=== PATIENT | female | born 1955 | race Hispanic/Latino ===

== ENCOUNTER → 2019-11-17 | Day surgery (SDC) | payer OTHER ==
[~2019-11-17] MED LIST: AMLODIPINE BESYL5 MG PO; CEFTRIAXONE SOD 1 GM/NS 50 ML 50 ML IV ONE; DIOVAN80 MG PO; IOPAMIDOL 300MG/ML 50ML INFUS..BTL IV ONE; LIDOCAINE HCL 2% LOCAL INJ 5 ML SDV VIAL INJ ONE; PROPOFOL IV EMULSION 10 MG/ML 20 ML VIAL ONE; SEVOFLURANE INHAL SOLN 250 ML PEN BTL ONE
--- OUTSIDE RECORDS SUMMARY | 2019-11-17 06:01 | XMS REPORT ---
Author Author Admin, [employer] Organization Unknown Address Unknown Phone Unavailable PROBLEMS Condition Status Date Provider Notes Urinalysis, abnormal active Lety Romina Increased frequency of urination active Lety Romina BMI 27.0-27.9 completed - Lety Romina Muscle spasm, trapezius completed - Lety Romina WELL EXAM, WOMAN completed - Lety Romina Bacterial vaginosis completed - Lety Romina UTI completed - Lety Romina Vaginal discharge completed - Lety Romina Dysuria completed - Lety Romina GOITER completed - Lety Romina on thyroxine 25 micrograms TSH 2 never scan, never visit to endocrine but requesting to go OVERWEIGHT completed - Lety Romina SIALOLITHIASIS completed - Lety Romina left submandibular gland BREAST PAIN, LEFT completed - Lety Romina FATIGUE completed - Lety Romina HEMATURIA completed - Lety Romina 10 rbc hpf on dip urine Dec 12 2013 will rx as infection but she knows to return for repeat urinalysis and may need cystoccopy. CEREBRAL ANEURYSM, RUPTURED completed - Lety Romina 2007 had ruptured aneurism treated medically was hypertensive a the time 1 month in [place] HYPOTHYROIDISM completed - Lety Romina five years of treatment, [facility] sent her to endocrine but she was not able to go for reasons of insurance expiration. Claims small dose all of this time. Will check TSH today. HYPERTENSION, BENIGN active Kya Quezada ESOPHAGEAL REFLUX completed - Lety Romina CYSTITIS, ACUTE, RECURRENT completed - Lety Romina 10 rbc/ hpf but biannual cystitis rx so will treat as infection, then recheck. ENCOUNTERS Date Type Provider Location Encounter Diagnosis - Ambulatory Encounter Lety Romina Davidson Romina [facility] UNK - [facility] CYSTITIS, ACUTE, RECURRENTESOPHAGEAL REFLUXHYPOTHYROIDISMCEREBRAL ANEURYSM, RUPTUREDHEMATURIAFATIGUEBREAST PAIN, LEFTSIALOLITHIASISOVERWEIGHTGOITERDysuriaVaginal dischargeUTIBacterial vaginosisWELL EXAM, WOMANMuscle spasm, trapeziusBMI 27.0-27.9Increased frequency of urinationUrinalysis, abnormal - [facility] UNK - Ambulatory Encounter Kya Quezada [facility] UNK - Ambulatory Encounter Kya Quezada [facility] UNK - Ambulatory Encounter Kya Plata [facility] BMI 27.0-27.9 - Ambulatory Encounter Buningris Sanchez [facility] UNK - Ambulatory Encounter Bunrimalcolm Sanchez [facility] UNK - Ambulatory Encounter Bunrimalcolm Snachez [facility] UNK - Ambulatory Encounter Buningris Sanchez [facility] UNK - Ambulatory Encounter Kya Quezada Adrián Perryline Matias [facility] Muscle spasm, trapezius - Ambulatory Encounter Kya Quezada [facility] UNK - Ambulatory Encounter Tiara Arauz [facility] - [facility]ulatory Encounter Kya Quezada [facility] UNK - Ambulatory Encounter Kya Quezada [facility] UNK - Ambulatory Encounter Kya Ignacio [facility] UNK - Ambulatory Encounter Samantha Kaitlin [facility] UNK - Ambulatory Encounter Ana Lopez [facility] UNK - Ambulatory Encounter Samantha Kaitlin [facility] UNK - Ambulatory Encounter Fax Status [facility] UNK - Ambulatory Encounter Fax Status [facility] UNK - Ambulatory Encounter Fax Status [facility] UNK - Ambulatory Encounter Fax Status [facility] UNK - Ambulatory Encounter Fax Status [facility] UNK - Ambulatory Encounter Samantha Kaitlin [facility] UNK - Ambulatory Encounter Samantha Kaitlin [facility] UNK - Ambulatory Encounter Samanthacosmo Madrigal Renée Lopez [facility] WELL EXAM, WOMAN - Ambulatory Encounter Urmila Menjivar Huyjose luis [facility] UNK - Ambulatory Encounter [facility] Tiara Prosjose luis [facility] UNK - Ambulatory Encounter LSJ [facility] Tiara Huyjose luis WintersUrmila Ignacio [facility] UNK - Ambulatory Encounter Tiara Prose [facility] UNK - Ambulatory Encounter Tiara Prose [facility] UNK - Ambulatory Encounter Carlos Oreilly [facility] DysuriaVaginal dischargeUTIBacterial vaginosis - Ambulatory Encounter Kya Quezada [facility] UNK - Ambulatory Encounter Fax Status [facility] UNK - Ambulatory Encounter Fax Status [facility] - Ambulatory Encounter Fax Status [facility] - Ambulatory Encounter Fax Status [facility] - Ambulatory Encounter Fax Status [facility] - Ambulatory Encounter Fax Status [facility] - [facility] - [facility]ulatory Encounter Kya Garcia Plata [facility] OVERWEIGHTGOITER - Ambulatory Encounter Gela Mcrae [facility] UNK - Ambulatory Encounter Kya Triplett [facility] SIALOLITHIASIS - Ambulatory Encounter [facility] - [facility]ulatory Encounter [facility] - Ambulatory Encounter Kya Quezada [facility] UNK - Ambulatory Encounter Ellis Stephanie [facility] UNK - Ambulatory Encounter Alycia Bennett Referral Coordination Department UNK - Ambulatory Encounter Kya Quezada [facility] UNK - Ambulatory Encounter Kya Ignacio [facility] CYSTITIS, ACUTE, RECURRENTESOPHAGEAL REFLUXHYPERTENSION, BENIGNHYPOTHYROIDISMCEREBRAL ANEURYSM, RUPTUREDHEMATURIAFATIGUEBREAST PAIN, LEFT VITAL SIGNS Date Observation Value Provider blood pressure, diastolic, second observation 80 mm[Hg] Deborath Vincent " blood pressure, systolic, second observation 125 mm[Hg] Deborath Vincent " temperature E&M 98.0 [degF] Deborath Vincent " respiratory rate E&M 16 /min Deborath Vincent " pulse rate E&M 69 /min Deborath Vincent " oxygen saturation, oximetry 99 % Deborath Vincent " blood pressure, diastolic 90 mm[Hg] Deborath Vincent " blood pressure, systolic 146 mm[Hg] [facility] " weight E&M 141.80 lbs. [facility] " weight in kilograms E&M 64.45 kg [facility] " height E&M 62 [in_i] [facility] " height in centimeters E&M 157.48 cm [facility] " method used to obtain blood pressure automatic [facility] " Blood Pressure Position 01 sitting [facility] " blood pressure, site #1 left arm [facility] " temperature site oral [facility] oxygen saturation, oximetry 98 % Josephine Plata " method used to obtain blood pressure automatic Josephine Plata " Blood Pressure Position 01 sitting Josephine Plata " blood pressure, site #1 right arm Josephine Plata " blood pressure, diastolic 97 mm[Hg] Josephine Plata " blood pressure, systolic 152 mm[Hg] Josephine Plata " respiratory rate E&M 17 /min Josephine Plata " pulse rate E&M 41 /min Josephine Plata " temperature site oral Josephine Plata " temperature E&M 97.0 [degF] Josephine Plata " weight E&M 147.40 lbs. Josephine Plata " weight in kilograms E&M 67 kg Josephine Plata " height E&M 62 [in_i] Josephine Plata " height in centimeters E&M 157.48 cm Josephine Plata oxygen saturation, oximetry 98 % Afia Salcedo " method used to obtain blood pressure automatic Afia Salcedo " Blood Pressure Position 01 sitting Afia Salcedo " blood pressure, site #1 right arm Afia Salcedo " blood pressure, diastolic 85 mm[Hg] Afia Salcedo " blood pressure, systolic 144 mm[Hg] Afia Salcedo " respiratory rate E&M 19 /min Afia Salcedo " pulse rate E&M 70 /min Afia Salcedo " temperature site tympanic Afia Salcedo " temperature E&M 98.7 [degF] Afia Salcedo " weight E&M 148 lbs. Afia Salcedo " weight in kilograms E&M 67.27 kg Afia Salcedo " height E&M 62 [in_i] Afia Salcedo " height in centimeters E&M 157.48 cm Afia Salcedo oxygen saturation, oximetry 98 % Urmila Mateus " blood pressure, diastolic 88 mm[Hg] Urmila Ignacio " blood pressure, systolic 147 mm[Hg] Urmila Ignacio " respiratory rate E&M 16 /min Urmila Ignacio " pulse rate E&M 67 /min Urmila Ignacio " temperature E&M 98.2 [degF] Urmila Ignacio " weight E&M 147.13 lbs. Urmila Ignacio " weight in kilograms E&M 66.88 kg Urmila Ignacio " temperature site oral Urmila Mateus " method used to obtain blood pressure automatic Urmila Ignacio " Blood Pressure Position 01 sitting Urmila Mateus " blood pressure, site #1 left arm Urmila Ignacio " height E&M 62 [in_i] Urmila Ignacio " height in centimeters E&M 157.48 cm Urmila Mateus oxygen saturation, oximetry 97 % Ana Lopez " method used to obtain blood pressure automatic Ana Lopez " Blood Pressure Position 01 sitting Ana Lopez " blood pressure, site #1 left arm Ana Lopez " blood pressure, diastolic 81 mm[Hg] Ana Lopez " blood pressure, systolic 122 mm[Hg] Ana Lopez " respiratory rate E&M 20 /min Ana Lopez " pulse rate E&M 61 /min Ana Lopez " temperature site tympanic Ana Lopez " temperature E&M 97.2 [degF] Ana Lopez " weight E&M 144.25 lbs. Ana Lopez " weight in kilograms E&M 65.57 kg Ana Lopez " height E&M 62 [in_i] Ana Lopez " height in centimeters E&M 157.48 cm Ana Lopez oxygen saturation, oximetry 99 % Afia Salcedo " method used to obtain blood pressure automatic Afia Salcedo " Blood Pressure Position 01 sitting Afia Salcedo " blood pressure, site #1 right arm Afia Salcedo " blood pressure, diastolic 87 mm[Hg] Afia Salcedo " blood pressure, systolic 130 mm[Hg] Afia Salcedo " respiratory rate E&M 18 /min Afia Salcedo " pulse rate E&M 69 /min Afia Salcedo " temperature site tympanic Afia Duenasa " temperature E&M 98.9 [degF] Afia Salcedo " weight E&M 145.13 lbs. Afia Duenasa " weight in kilograms E&M 65.97 kg Afia Salcedo " height E&M 62 [in_i] Afia Salcedo " height in centimeters E&M 157.48 cm Afia Salcedo method used to obtain blood pressure automatic Radha Plata " Blood Pressure Position 01 sitting Radha Plata " blood pressure, site #1 left arm Radha Plata " blood pressure, diastolic 91 mm[Hg] Radha Plata " blood pressure, systolic 142 mm[Hg] Radha Plata " temperature site oral Radha Plata " temperature E&M 98.1 [degF] Radha Plata " respiratory rate E&M 18 /min Radha Plata " pulse rate E&M 72 /min Radha Plata " oxygen saturation, oximetry 98 % Radha Plata " weight E&M 141 lbs. Radha Plata " weight in kilograms E&M 64.09 kg Radha Plata " height E&M 62 [in_i] Radha Plata " height in centimeters E&M 157.48 cm Radha Plata oxygen saturation, oximetry 98 % Ioana Borjas " method used to obtain blood pressure automatic Ioana Borjas " Blood Pressure Position 01 sitting Ioana Borjas " blood pressure, site #1 right arm Ioana Borjas " blood pressure, diastolic 90 mm[Hg] Ioana Borjas " blood pressure, systolic 146 mm[Hg] Ioana Borjas " respiratory rate E&M 16 /min Ioana Borjas " pulse rate E&M 58 /min Ioana Borjas " temperature site oral Ioana Borjas " temperature E&M 98.2 [degF] Ioana Borjas " weight E&M 141.40 lbs. Ioana Borjas " weight in kilograms E&M 64.27 kg Ioana Borjas " height E&M 62 [in_i] Ioanamykel Borjas " height in centimeters E&M 157.48 cm Ioana Borjas temperature site oral Urmila Ignacio " method used to obtain blood pressure automatic Urmilamague Ignacio " blood pressure, site #1 right arm Urmilamague Ignacio " Blood Pressure Position 01 sitting Urmilamague Ignacio " oxygen saturation, oximetry 98 % Urmilamague Bhattrez " blood pressure, diastolic 101 mm[Hg] Urmila Ignacio " blood pressure, systolic 164 mm[Hg] Urmila Ignacio " respiratory rate E&M 17 /min Urmilamague Bhattrez " pulse rate E&M 76 /min Urmila Ignacio " temperature E&M 98.5 [degF] Urmila Ignacio " weight E&M 140 lbs. Urmila Ignacio " weight in kilograms E&M 63.64 kg Urmilamague Ignacio " height in centimeters E&M 157.48 cm Urmila Ignacio " height E&M 62 [in_i] Urmila Ignacio ALLERGIES Allergy Name Onset Date Reaction Criticality Status HEPARIN Platelet level decreases High Criticality active REASON FOR REFERRAL No Information Available RESULTS Date Observation Value Provider Reference Range Interpretation Location specific gravity, urine 1.025 Deborath Vincent " pH, urine, semiquantitative 5.0 Deborath Vincent " glucose, urine, semiquantitative negative Deborath Vincent " bilirubin, urine 1+ Deborath Vincent " ketones, urine, by test strip negative Debora Vincent " blood in urine (hemoglobin) by dipstick 2+ Deborath Vincent " protein, urine, semiquantitative (dipstick) negative Deborath Vincent " urobilinogen, urine, semiquantitative (dipstick) negative Deborath Vincent " nitrite, urine, semiquantitative negative Deborath Vincent " leukocyte esterase, urine, by dipstick trace Deborath Vincent " appearance, urine clear Deborath Vincent " urine color orange Deborath Vincent immature granulocytes, percentage of total cells, blood 0 % [facility] " basophil count, absolute 0.0 x10E3/uL [facility] 0.0-0.2 " Eosinophil Absolute Count 0.1 X10E3/UL [facility] 0.0-0.4 " monocyte count, blood, automated 0.3 X10E3/UL [facility] 0.1-0.9 " lymphocyte count, blood, automated 2.0 X10E3/UL [facility] 0.7-3.1 " Absolute Neutrophils 3.4 X10E3/UL [facility] 1.4-7.0 " basophils as percent of blood leukocytes 1 % [facility] " eosinophils as percent of blood leukocytes 2 % [facility] " monocytes as percent of blood leukocytes 6 % [facility] " lymphocytes as percent of blood leukocytes 34 % [facility] " neutrophils as percent of blood leukocytes 57 % [facility] " platelet count 213 X10E3/UL [facility] 150-379 " red blood cell distribution width 13.3 % [facility] 12.3-15.4 " mean corpuscular hemoglobin concentration, RBC 32.9 G/DL [facility] 31.5-35.7 " mean corpuscular hemoglobin, RBC 29.6 pg [facility] 26.6-33.0 " mean corpuscular volume, RBC 90 fL [facility] 79-97 " hematocrit, blood 41.4 % [facility] 34.0-46.6 " hemoglobin, blood 13.6 g/dL [facility] 11.1-15.9 " erythrocyte (RBC) count 4.60 X10E6/UL [facility] 3.77-5.28 " leukocyte count, blood 6.0 X10E3/UL [facility] 3.4-10.8 " thyroxine, serum, free 0.91 ng/dL [facility] 0.82-1.77 " thyroid stimulating hormone, serum 2.210 u[iU]/mL [facility] 0.450-4.500 specific gravity, urine 1.015 Josephine Plata " pH, urine, semiquantitative 6.5 Josephine Plata " glucose, urine, semiquantitative negative Josephine Plata " bilirubin, urine negative Josephine Plata " ketones, urine, by test strip negative Josephine Plata " blood in urine (hemoglobin) by dipstick hemolyzed trace Josephine Plata " protein, urine, semiquantitative (dipstick) negative Josephine Plata " urobilinogen, urine, semiquantitative (dipstick) 0.2 Josephine Plata " nitrite, urine, semiquantitative negative Josephine Plata " leukocyte esterase, urine, by dipstick trace Josephine Plaat " appearance, urine clear Josephine Plata " urine color yellow Josephine Plata urine culture Proteus mirabilis [facility] Abnormal specific gravity, urine 1.020 Urmila Ignacio " pH, urine, semiquantitative 6.0 Urmila Ignacio " glucose, urine, semiquantitative negative Urmila Ignacio " bilirubin, urine negative Urmila Ignacio " ketones, urine, by test strip negative Urmila Ignacio " blood in urine (hemoglobin) by dipstick 1+ Urmila Ignacio " protein, urine, semiquantitative (dipstick) trace Urmila Ignacio " urobilinogen, urine, semiquantitative (dipstick) negative Urmila Ignacio " nitrite, urine, semiquantitative negative Urmila Ignacio " leukocyte esterase, urine, by dipstick 1+ Urmila Ignacio " appearance, urine clear Urmila Ignacio " urine color yellow Urmila Ignacio thyroid stimulating hormone, serum 2.280 u[iU]/mL [facility] 0.450-4.500 " LDL cholesterol, serum 98 mg/dL [facility] 0-99 " very low density lipoproteins 24 mg/dL [facility] 5-40 " HDL cholesterol, serum 52 mg/dL [facility] >39 " triglyceride, serum, fasting 121 mg/dL [facility] 0-149 " cholesterol, serum 174 mg/dL [facility] 100-199 " alanine aminotransferase (SGPT), serum 19 1/L [facility] 0-32 " aspartate aminotransferase (SGOT), serum 19 1/L [facility] 0-40 " alkaline phosphatase, serum 53 1/L [facility] 39-117 " bilirubin, serum, total 0.4 mg/dL [facility] 0.0-1.2 " albumin/globulin ratio, serum 1.4 [facility] 1.1-2.5 " globulin, serum 2.9 [facility] 1.5-4.5 " albumin, serum 4.2 g/dL [facility] 3.5-5.5 " protein, total, serum 7.1 g/dL [facility] 6.0-8.5 " calcium, serum 9.4 mg/dL [facility] 8.7-10.2 " carbon dioxide, venous blood 28 mmol/L [facility] 18-29 " chloride, serum 102 mmol/L [facility] 97-108 " potassium, serum 3.7 mmol/L [facility] 3.5-5.2 " sodium, serum 143 mmol/L [facility] 134-144 " urea nitrogen/creatinine ratio, serum 29 [facility] 9-23 High " eGFR if 115 mL/min/((173/100).m2) [facility] >59 " Estimated Glomerular Filtration Rate (calc) 100 mL/min/((173/100).m2) [facility] >59 " creatinine, serum 0.62 mg/dL [facility] 0.57-1.00 " urea nitrogen, blood 18 mg/dL [facility] 6-24 " blood glucose, random 90 mg/dL [facility] 65-99 Neisseria gonorrhoeae DNA probe Negative [facility] Negative " chlamydia DNA probe Negative [facility] Negative " urine culture Proteus mirabilis [facility] Abnormal specific gravity, urine 1.020 Natty Vincent " pH, urine, semiquantitative 6.0 Natty Vincent " glucose, urine, semiquantitative negative Nattyrupali Vincent " bilirubin, urine negative Natty Vincent " ketones, urine, by test strip negative Natty Vincent " blood in urine (hemoglobin) by dipstick non-hemolyzed trace Natty Vincent " protein, urine, semiquantitative (dipstick) negative Natty Vincent " urobilinogen, urine, semiquantitative (dipstick) 0.2 Nattyrupali Vincent " nitrite, urine, semiquantitative negative Nattyrupali Vincent " leukocyte esterase, urine, by dipstick 3+ Natty Vincent " appearance, urine clear Natty Vincent " urine color yellow Natty Vincent hemoglobin A1C, blood, as % of total hemoglobin 5.4 % [facility] 4.8-5.6 " thyroid stimulating hormone, serum 2.260 u[iU]/mL [facility] 0.450-4.500 " LDL cholesterol, serum 89 mg/dL [facility] 0-99 " very low density lipoproteins 23 mg/dL [facility] 5-40 " HDL cholesterol, serum 56 mg/dL [facility] >39 " triglyceride, serum, fasting 115 mg/dL [facility] 0-149 " cholesterol, serum 168 mg/dL [facility] 100-199 " alanine aminotransferase (SGPT), serum 22 1/L [facility] 0-32 " aspartate aminotransferase (SGOT), serum 20 1/L [facility] 0-40 " alkaline phosphatase, serum 61 1/L [facility] 39-117 " bilirubin, serum, total 0.4 mg/dL [facility] 0.0-1.2 " albumin/globulin ratio, serum 1.6 [facility] 1.1-2.5 " globulin, serum 2.9 [facility] 1.5-4.5 " albumin, serum 4.5 g/dL [facility] 3.5-5.5 " protein, total, serum 7.4 g/dL [facility] 6.0-8.5 " calcium, serum 9.5 mg/dL [facility] 8.7-10.2 " carbon dioxide, venous blood 29 mmol/L [facility] 19-28 High " chloride, serum 103 mmol/L [facility] 97-108 " potassium, serum 3.9 mmol/L [facility] 3.5-5.2 " sodium, serum 143 mmol/L [facility] 134-144 " urea nitrogen/creatinine ratio, serum 29 [facility] 9-23 High " eGFR if 118 mL/min/((173/100).m2) [facility] >59 " Estimated Glomerular Filtration Rate (calc) 103 mL/min/((173/100).m2) [facility] >59 " creatinine, serum 0.59 mg/dL [facility] 0.57-1.00 " urea nitrogen, blood 17 mg/dL [facility] 6-24 " blood glucose, random 85 mg/dL [facility] 65-99 " immature granulocytes, percentage of total cells, blood 0 % [facility] 0-2 " basophil count, absolute 0.0 x10E3/uL [facility] 0.0-0.2 " Eosinophil Absolute Count 0.1 X10E3/UL [facility] 0.0-0.4 " monocyte count, blood, automated 0.3 X10E3/UL [facility] 0.1-0.9 " lymphocyte count, blood, automated 1.5 X10E3/UL [facility] 0.7-3.1 " Absolute Neutrophils 3.7 X10E3/UL [facility] 1.4-7.0 " basophils as percent of blood leukocytes 1 % [facility] 0-3 " eosinophils as percent of blood leukocytes 1 % [facility] 0-5 " monocytes as percent of blood leukocytes 6 % [facility] 4-12 " lymphocytes as percent of blood leukocytes 27 % [facility] 14-46 " neutrophils as percent of blood leukocytes 65 % [facility] 40-74 " platelet count 192 X10E3/UL [facility] 155-379 " red blood cell distribution width 13.4 % [facility] 12.3-15.4 " mean corpuscular hemoglobin concentration, RBC 33.1 G/DL [facility] 31.5-35.7 " mean corpuscular hemoglobin, RBC 29.1 pg [facility] 26.6-33.0 " mean corpuscular volume, RBC 88 fL [facility] 79-97 " hematocrit, blood 42.3 % [facility] 34.0-46.6 " hemoglobin, blood 14.0 g/dL [facility] 11.1-15.9 " erythrocyte (RBC) count 4.81 X10E6/UL [facility] 3.77-5.28 " leukocyte count, blood 5.7 X10E3/UL [facility] 3.4-10.8 specific gravity, urine 1.020 Urmila Ignacio " pH, urine, semiquantitative 6.0 Urmila Ignacio " glucose, urine, semiquantitative negative Urmila Ignacio " bilirubin, urine negative Urmila Igncaio " ketones, urine, by test strip negative Urmila Ignacio " blood in urine (hemoglobin) by dipstick 1+ Urmila Ignacio " protein, urine, semiquantitative (dipstick) negative Urmila Ignacio " urobilinogen, urine, semiquantitative (dipstick) negative Urmila Ignacio " nitrite, urine, semiquantitative negative Urmila Ignacio " leukocyte esterase, urine, by dipstick negative Urmila Ignacio " appearance, urine clear Urmila Ignacio " urine color yellow Urmila Ignacio HISTORY OF IMMUNIZATIONS Date Vaccine Dose Lot Number Status Fluzone Quadrivalent IM Prefilled Syringe [facility] [address]-49 0.5 mL [id number] completed HISTORY OF MEDICATION USE Medication Instructions Dates Provider Comments DIOVAN 80 MG ORAL TABLET 1 by mouth every day Lety Romina AMLODIPINE BESYLATE 5 MG ORAL TABLET 1 tab by mouth daily Lety Romina NAPROXEN 500 MG ORAL TABLET 1 by mouth twice a day as needed for pain and inflammation - Kya Quezada DICLOFENAC SODIUM 1 % TRANSDERMAL GEL Apply as directed - Kya Quezada CYCLOBENZAPRINE HCL 5 MG ORAL TABLET Take 1 tab TID - Kya Quezada CIPRO 250 MG ORAL TABLET 1 by mouth twice a day - Lety Romina KEFLEX 500 MG ORAL CAPSULE 1 by mouth 2 times a day x 3 days - Samantha Madrigal FLAGYL 500 MG ORAL TABLET 1 tab by mouth twice a day for 7 days - Samantha Kaitlin MACROBID 100 MG ORAL CAPSULE 1 by mouth twice a day - Tiara Arauz BACTRIM DS 800-160 MG ORAL TABLET i By Mouth Twice a Day - Tiara Arauz LEVOTHYROXINE SODIUM 25 MCG ORAL TABLET i By Mouth daily - Kya Quezada HYZAAR 50-12.5 MG ORAL TABLET 1 tab By Mouth daily - Lety Romina OMEPRAZOLE 20 MG ORAL CAPSULE DELAYED RELEASE i By Mouth daily for GERD - Samantha Madrigal SOCIAL HISTORY Date Observation Value Provider Exercise Program Referral T Keith Vincent " Weight Management Counseling Provided T Keith Vincent " Nutrition intervention T Keith Vincent " drug use, illicit Never Keith Vincent " alcohol use Never Keith Vinecnt " smoking status never smoker Keith Vincent " social history E&M Single. Not homeless. City: [facility]. State: [place]. 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 Gender of partner(s): male. Keith Vincent " social history reviewed E&M reviewed today Keith Vincent drug use, illicit Never Josephine Plata " alcohol use Never Josephine Plata " social history E&M Single. Not homeless. City: [facility]. State: [place]. 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 Gender of partner(s): male. Josephine Plata " social history reviewed E&M reviewed today Josephine Plata " passive cigarette smoke exposure No Josephine Plata " smoking status never smoker Josephine Plata drug use, illicit Never Afia Salcedo " alcohol use Never Afia Salcedo " passive cigarette smoke exposure No Afia Salcedo " smoking status never smoker Aifa Salcedo drug use, illicit Never Urmila Ignacio " alcohol use Never Urmila Ignacio " social history E&M Single. Not homeless. City: [facility]. State: [place]. 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 Gender of partner(s): male. Urmila Bhattrez " social history reviewed E&M reviewed today Urmila Ignacio " passive cigarette smoke exposure No Urmila Ignacio " smoking status never smoker Urmila Ignacio drug use, illicit Never Ana John " alcohol use Never Ana John " passive cigarette smoke exposure No Ana John " smoking status never smoker Ana John " Exercise Program Referral Danna Lopez " Weight Management Counseling Provided Danna Lopez " Nutrition intervention Danna Lopez drug use, illicit Never Afia Salcedo " alcohol use Never Afia Salcedo " passive cigarette smoke exposure No Afia Salcedo " smoking status never smoker Afia Salcedo Exercise Program Referral Danna Quezada " Weight Management Counseling Provided Danna Quezada " Nutrition intervention Danna Quezada " drug use, illicit Never Radha Plata " alcohol use Never Radha Plata " is there any chance that you could be ? No Radha Plata " passive cigarette smoke exposure No Radha Plata " smoking status never smoker Radha Plata passive cigarette smoke exposure No Ioana Indio " smoking status never smoker Ioana Indio home/family situation, assessment lives in house with her self and her son Kya Quezada " family support here with daughter and grandson. lives in house with herself and her son. Kya Quezada " social history reviewed E&M reviewed today Urmila Ignacio " social history E&M Single. Not homeless. City: [facility]. State: . 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 Gender of partner(s): male. 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 Urmila Ignacio " patient considered to be homeless No Urmila Ignacio " drug use, illicit Never Urmila Ignacio " alcohol use Never Urmila Ignacio " passive cigarette smoke exposure No Urmila Ignacio " smoking status never smoker Urmila Ignacio FUNCTIONAL STATUS No Information Available MENTAL STATUS Date Observation Value Provider mental status examination: orientation E&M oriented to time, place, and person Lety Vanegas " assessment of mood and affect E&M no depression, anxiety, or agitation Lety Vanegas Generalized Anxiety Disorder Questionnaire - Question 2 0 Josephine Plata " Generalized Anxiety Disorder Questionnaire - Question 1 0 Josephine Plata assessment of judgment and insight E&M intact Adrián Sanchez " assessment of mood and affect E&M no depression, anxiety, or agitation Adrián Sanchez " Generalized Anxiety Disorder Questionnaire - Question 2 0 Afia Salcedo " Generalized Anxiety Disorder Questionnaire - Question 1 0 Afia Salcedo Generalized Anxiety Disorder Questionnaire - Question 2 0 Urmila Ignacio " Generalized Anxiety Disorder Questionnaire - Question 1 0 Urmila Ignacio assessment of judgment and insight E&M intact Samantha Madrigal " assessment of mood and affect E&M no depression, anxiety, or agitation Samantha Madrigal " Generalized Anxiety Disorder Questionnaire - Question 2 0 Ana Lopez " Generalized Anxiety Disorder Questionnaire - Question 1 0 Ana Lopez assessment of judgment and insight E&M intact Tiara Prose " assessment of mood and affect E&M no depression, anxiety, or agitation Tiara Prose " Generalized Anxiety Disorder Questionnaire - Question 2 0 Afia Salcedo " Generalized Anxiety Disorder Questionnaire - Question 1 0 Afia Duenasa Generalized Anxiety Disorder Questionnaire - Question 2 0 Radha Plata " Generalized Anxiety Disorder Questionnaire - Question 1 0 Radha Plata Generalized Anxiety Disorder Questionnaire - Question 2 0 Ioana Short " Generalized Anxiety Disorder Questionnaire - Question 1 0 Ioana Short assessment of judgment and insight E&M intact Kya Quezada " assessment of mood and affect E&M no depression, anxiety, or agitation Kya Quezada " Generalized Anxiety Disorder Questionnaire - Question 2 0 Urmila Ignacio " Generalized Anxiety Disorder Questionnaire - Question 1 0 Urmilajob Ignacio MEDICAL EQUIPMENT No Information Available FAMILY HISTORY No Information Available INSURANCE PROVIDERS No Information Available ADVANCE DIRECTIVES No Information Available TREATMENT PLAN Date Name Urine Culture, Routine Urinalysis Complete w/reflex to Culture TSH Lipid Panel Comp. Metabolic Panel (14) CBC With Differential/Platelet CBC With Differential/Platelet TSH+Free T4 Urine Culture, Routine TSH Lipid Panel Comp. Metabolic Panel (14) Chlamydia/GC Amplification (Cervical) Urine Culture, Routine TSH Hemoglobin A1c Lipid Panel Comp. Metabolic Panel (14) CBC With Differential/Platelet New Patient Detailed - 77531 Venipuncture Vaccines Ordered - Print Consent/Declination Forms Urinalysis - Dip only - In House Influenza 4 Valent 3yrs+ IM - Declined Urinalysis - Dip only - In House Est Patient Exp Problem - 98186 Est Patient Exp Problem - 35513 Est Patient Exp Problem - 44193 Est Patient Well Exam (40 - 64 Yrs) - 48538 [place] - In House Est Patient Exp Problem - 28339 Urinalysis - Dip only - In House Est Patient Exp Problem - 39494 Est Patient Exp Problem - 15795 New Patient Detailed - 31430 HISTORY OF PROCEDURES Procedure Date Procedure Name Provider Procedure Notes Status Venipuncture Lety Romina completed Vaccines Ordered - Print Consent/Declination Forms Lety Vanegas completed Urinalysis - Dip only - In House Lety Vanegas completed Influenza 4 Valent 3yrs+ IM - Declined Kya Quezada completed Urinalysis - Dip only - In House Kya Quezada completed [place] - In House Carlos Shaikh completed Urinalysis - Dip only - In House Carlos Shaikh completed GOALS No Information Available HEALTH CONCERNS No Information Available
--- OUTSIDE RECORDS SUMMARY | 2019-11-17 06:01 | XMS REPORT ---
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 Allergies, Adverse Reactions, Alerts This patient has no known allergies or adverse reactions. Medications This patient has no known medications. Encounters Start Date/Time End Date/Time Encounter Type Admission Type Attending [facility] Facility Care Department Encounter ID 2019-06-29 07:24:45 2019-06-29 07:24:45 Outpatient [facility] [id number] 2019-05-19 08:17:04 2019-05-19 08:17:04 Outpatient [facility] [id number] 2019-05-05 13:54:46 2019-05-05 13:54:46 Outpatient [facility] [id number] 2019-04-25 14:52:08 2019-04-25 14:52:08 Outpatient [facility] [id number] 2019-04-25 14:29:22 2019-04-25 14:29:22 Outpatient [facility] [id number] 2019-04-25 13:33:25 2019-04-25 13:33:25 Outpatient [facility] [id number] 2019-04-25 00:00:00 2019-04-25 00:00:00 Outpatient [facility] [id number] 2019-03-16 13:30:18 2019-03-16 13:30:18 Outpatient [facility] [id number] 2019-01-23 13:00:38 2019-01-23 13:00:38 Outpatient [facility] [id number] 2019-01-23 11:01:22 2019-01-23 11:01:22 Outpatient [facility] [id number] 2019-01-16 00:00:00 2019-01-16 00:00:00 Outpatient [facility] [id number] 2019-01-10 00:00:00 2019-01-10 00:00:00 Outpatient [facility] [id number] 2019-01-05 00:00:00 2019-01-05 00:00:00 Outpatient [facility] [id number] 2018-12-22 09:04:42 2018-12-22 09:04:42 Outpatient [facility] [id number] 2018-12-22 08:25:31 2018-12-22 08:25:31 Outpatient [facility] [id number]
--- OUTSIDE RECORDS SUMMARY | 2019-11-17 06:02 | XMS REPORT ---
Author Author Admin, Dietrich Organization Unknown Address Unknown Phone Unavailable PROBLEMS Condition Status Date Provider Notes Hematuria active Lety Romina Urinalysis, abnormal active Lety Romina Increased frequency [...] - Lety Romina five years of treatment, [facility] sent her to endocrine but she [...] Provider Location Encounter Diagnosis - Ambulatory Encounter Fax Status [facility] Services UNK - Ambulatory Encounter Fax Status [facility] Services UNK - Ambulatory Encounter Fax Status [facility] Services UNK - Ambulatory Encounter Lety Rominaandres Purcellia Romina [facility] Practice UNK - Ambulatory Encounter Lety Romina Lety Romina Darshana Kim [facility] Hematuria - Ambulatory Encounter Samantha Kaitlin [facility] Services UNK - Ambulatory Encounter Samantha Kaitlin [facility] Services UNK - Ambulatory Encounter [facility] - Ambulatory Encounter Samantha Kaitlin [facility] Services UNK - Ambulatory Encounter Lety Romina Lety Romina [facility] UNK - Ambulatory Encounter Lety Romina [facility]ulatory Encounter Lety Romina [facility] - Ambulatory Encounter Keith Gibbs [facility] Stephanie Warren [facility] Practice UNK - Ambulatory Encounter Lety Romina Lety Romina [facility] UNK - Ambulatory Encounter Lety Romina Lety Romina [facility] Practice UNK - Ambulatory Encounter Lety Romina Lety Romina [facility] UNK - Ambulatory Encounter Lety Romina Lety Romina [facility] UNK - Ambulatory Encounter Keith Vincent [facility] UNK - Ambulatory Encounter [facility], ACUTE, RECURRENTESOPHAGEAL REFLUXHYPOTHYROIDISMCEREBRAL ANEURYSM, RUPTUREDHEMATURIAFATIGUEBREAST PAIN, LEFTSIALOLITHIASISOVERWEIGHTGOITERDysuriaVaginal dischargeUTIBacterial vaginosisWELL EXAM, WOMANMuscle spasm, trapeziusBMI 27.0-27.9Increased frequency of urinationUrinalysis, abnormal - Ambulatory Encounter Samantha Madrigal [facility] UNK - Ambulatory Encounter Kya Quezada [facility] UNK - Ambulatory Encounter Kya Quezada [facility] Practice UNK - Ambulatory Encounter Kya Quezada [facility] UNK - [facility].0-27.9 - Ambulatory Encounter Adrián Sanchez [facility] UNK - Ambulatory Encounter Buningris Sanchez [facility] UNK - Ambulatory Encounter Bunrimalcolm Sanchez [facility] UNK - Ambulatory Encounter Buningris Sanchez [facility] UNK - Ambulatory Encounter Kya Quezada Jose Elias Daniel Afia Salcedo [facility] Practice Muscle spasm, trapezius - Ambulatory Encounter [facility] Tiara [facility]uz [facility] - [facility]ulatory En[facility] - [facility]ulatory Encounter Kya Quezada [facility] UNK - Ambulatory Encounter Kya Ignacio [facility] UNK - Ambulatory Encounter [facility] - Ambulatory Encounter Ana John [facility] UNK - Ambulatory Encounter Samantha Kaitlin [facility] UNK - Ambulatory Encounter Fax Status [facility] UNK - Ambulatory Encounter Fax Status [facility] UNK - Ambulatory Encounter Fax Status [facility] UNK - Ambulatory Encounter Fax Status [facility] UNK - Ambulatory Encounter Fax Status [facility] UNK - Ambulatory Encounter Samanthacosmo Madrigal [facility] UNK - Ambulatory Encounter Samantha Kaitlin [facility] UNK - Ambulatory Encounter Samantha Madrigal Renée Perdomo Ana John [facility] WELL EXAM, WOMAN - Ambulatory Encounter Urmila Arauz [facility] UNK - Ambulatory Encounter [facility] Support Desktop [facility] Tiara Prose [facility] UNK - Ambulatory Encounter LSJ Lab Support Desktop [facility] Tiara Ignacio [facility] UNK - Ambulatory Encounter Tiara Huyjose luis [facility] UNK - Ambulatory Encounter Tiara Prosjose luis [facility] UNK - Ambulatory Encounter Carlso Oreilly [facility] DysuriaVaginal dischargeUTIBacterial vaginosis - Ambulatory Encounter [facility] Encounter Fax Status [facility] UNK - Ambulatory Encounter Fax Status [facility] UNK - Ambulatory Encounter Fax Status [facility] UNK - Ambulatory Encounter Fax Status [facility] UNK - Ambulatory Encounter Fax Status [facility] UNK - Ambulatory Encounter [facility] - Ambulatory Encounter Fax Status [facility] UNK - Ambulatory Encounter Fax Status [facility] UNK - Ambulatory Encounter Kya Quezada Radha Plata [facility] OVERWEIGHTGOITER - Ambulatory Encounter Gela Clementina [facility] UNK - Ambulatory Encounter Kya Churchillsey Indio [facility] SIALOLITHIASIS - Ambulatory Encounter Fax Status [facility] UNK - Ambulatory Encounter Fax Status [facility] UNK - Ambulatory Encounter Kya Quezada [facility] UNK - Ambulatory Encounter Ellis Brown [facility] UNK - Ambulatory Encounter Alycia Bennett Referral Coordination Department UNK - Ambulatory Encounter Kya Quezada [facility] UNK - Ambulatory Encounter Kya Gilierrez [facility] CYSTITIS, ACUTE, RECURRENTESOPHAGEAL REFLUXHYPERTENSION, BENIGNHYPOTHYROIDISMCEREBRAL ANEURYSM, RUPTUREDHEMATURIAFATIGUEBREAST PAIN, LEFT VITAL SIGNS Date Observation Value Provider oxygen saturation, oximetry 98 % Darshana Chen " respiratory rate E&M 20 /min Darshana Chen " pulse rate E&M 71 /min Darshana Chen " temperature E&M 97.8 [degF] Darshana Chen " blood pressure, diastolic 84 mm[Hg] Darshana Chen " blood pressure, systolic 134 mm[Hg] Darshana Chen " method used to obtain blood pressure automatic Darshana Chen " Blood Pressure Position 01 sitting Darshana Chen " blood pressure, site #1 left arm Darshana Chen " temperature site oral Darshana Gustavo " height E&M 62 [in_i] Darshana Chen " height in centimeters E&M 157.48 cm Darshana Chen " weight E&M 142.80 lbs. Darshana Chen " weight in kilograms E&M 64.91 kg Darshana Chen blood pressure, diastolic, second observation 80 mm[Hg] [facility] " blood pressure, systolic, second observation 125 mm[Hg] [facility] " temperature E&M 98.0 [degF] [facility] " respiratory rate E&M 16 /min [facility] " pulse rate E&M 69 /min [facility] " oxygen saturation, oximetry 99 % [facility] " blood pressure, diastolic 90 mm[Hg] [facility] " blood pressure, systolic 146 mm[Hg] [facility] " weight E&M 141.80 lbs. [facility] " weight in kilograms E&M 64.45 kg [facility] " height E&M 62 [in_i] [facility] " height in centimeters E&M 157.48 cm [facility] " method used to obtain blood pressure automatic [facility] " Blood Pressure Position 01 sitting [facility] " blood pressure, site #1 left arm [facility] " temperature site oral [facility] oxygen saturation, oximetry 98 % Josephine Plata [...] height in centimeters E&M 157.48 cm Josephine Molinarera oxygen saturation, oximetry 98 % Afia Salcedo [...] Salcedo oxygen saturation, oximetry 98 % Urmila Ignacio " blood pressure, diastolic 88 mm[Hg] Urmila Ignacio " blood pressure, systolic 147 mm[Hg] Urmila Ignacio " respiratory rate E&M 16 /min Urmila Ignacio " pulse rate E&M 67 /min Urmila Ignacio " temperature E&M 98.2 [degF] Urmila Ignacio " weight E&M 147.13 lbs. Urmila Ignacio " weight in kilograms E&M 66.88 kg Urmila Ignacio " temperature site oral Urmila Ignacio " method used to obtain blood pressure automatic Urmila Ignacio " Blood Pressure Position 01 sitting Urmila Ignacio " blood pressure, site #1 left arm Urmila Ignacio " height E&M 62 [in_i] Urmila Ignacio " height in centimeters E&M 157.48 cm Urmila Ignacio oxygen saturation, oximetry 97 % Ana Lopez [...] Salcedo " blood pressure, diastolic 87 mm[Hg] Faia Salcedo " blood pressure, systolic 130 mm[Hg] Afia Salcedo " respiratory rate E&M 18 /min Afia Salcedo " pulse rate E&M 69 /min Afia Salcedo " temperature site tympanic Afia Salcedo " temperature E&M 98.9 [degF] Afia Salcedo " weight E&M 145.13 lbs. Afia Salcedo " weight in kilograms E&M 65.97 kg [...] " respiratory rate E&M 16 /min Ioana Short " pulse rate E&M 58 /min Ioana Borjas " temperature site oral Ioana Borjas " temperature E&M 98.2 [degF] Ioana Borjas " weight E&M 141.40 lbs. Ioana Borjas " weight in kilograms E&M 64.27 kg Ioana Borjas " height E&M 62 [in_i] Ioana Borjas " height in centimeters E&M 157.48 cm Ioana Borjas temperature site oral Urmila Ignacio " method used to obtain blood pressure automatic Urmila Ignacio " blood pressure, site #1 right arm Urmila Ignacio " Blood Pressure Position 01 sitting Urmila Ignacio " oxygen saturation, oximetry 98 % Urmila Ignacio " blood pressure, diastolic 101 mm[Hg] Urmila Ignacio " blood pressure, systolic 164 mm[Hg] Urmila Ignacio " respiratory rate E&M 17 /min Urmila Ignacio " pulse rate E&M 76 /min Urmila Ignacio " temperature E&M 98.5 [degF] Urmila Ignacio " weight E&M 140 lbs. Urmila Ignacio " weight in kilograms E&M 63.64 kg Urmila Ignacio " height in centimeters E&M 157.48 cm Urmila Ignacio " height E&M 62 [in_i] Urmila Ignacio ALLERGIES Allergy Name Onset Date Reaction Criticality Status HEPARIN Platelet level decreases High Criticality active REASON FOR REFERRAL Start Date - End Date Service - Urology - External RESULTS Date Observation Value Provider Reference Range Interpretation Location thyroid stimulating hormone, serum 2.720 u[iU]/mL [facility] 0.450-4.500 " LDL cholesterol, serum 87 mg/dL [facility] 0-99 " very low density lipoproteins 14 mg/dL [facility] 5-40 " HDL cholesterol, serum 56 mg/dL [facility] >39 " triglyceride, serum, fasting 72 mg/dL [facility] 0-149 " cholesterol, serum 157 mg/dL [facility] 100-199 " bacteria, urine microscopy None seen [facility] None seen/Few " mucus on urinalysis Present [facility] Not Estab. " epithelial cells, urine 0-10 [facility] 0 - 10 " RBC, Urine 3-10 /hpf [facility] 0 - 2 Abnormal " WBC urine on microscopy 0-5 /hpf [facility] 0 - 5 " urinalysis, microscopic examination See below: [facility] " nitrate, urine Negative [facility] Negative " urobilinogen, urine, semiquantitative (dipstick) 0.2 [facility] 0.2-1.0 " bilirubin, urine Negative [facility] Negative " ketones, urine, by test strip Negative [facility] Negative " glucose, urine, semiquantitative Negative [facility] Negative " protein, urine, semiquantitative (dipstick) Negative [facility] Negative/Trace " leukocyte esterase, urine, by dipstick Negative [facility] Negative " appearance, urine Clear [facility] Clear " urine color Yellow [facility] Yellow " pH, urine, semiquantitative 6.0 [facility] 5.0-7.5 " specific gravity, body fluid 1.018 [facility] 1.005-1.030 " alanine aminotransferase (SGPT), serum 17 1/L [facility] 0-32 " aspartate aminotransferase (SGOT), serum 21 1/L [facility] 0-40 " alkaline phosphatase, serum 62 1/L [facility] 39-117 " bilirubin, serum, total 0.6 mg/dL [facility] 0.0-1.2 " albumin/globulin ratio, serum 1.6 [facility] 1.2-2.2 " globulin, serum 2.7 [facility] 1.5-4.5 " albumin, serum 4.2 g/dL [facility] 3.8-4.8 " protein, total, serum 6.9 g/dL [facility] 6.0-8.5 " calcium, serum 9.4 mg/dL [facility] 8.7-10.3 " carbon dioxide, venous blood 26 mmol/L [facility] 20-29 " chloride, serum 103 mmol/L [facility] 96-106 " potassium, serum 4.3 mmol/L [facility] 3.5-5.2 " sodium, serum 143 mmol/L [facility] 134-144 " urea nitrogen/creatinine ratio, serum 22 [facility] 12-28 " eGFR if 109 mL/min/((173/100).m2) [facility] >59 " Estimated Glomerular Filtration Rate (calc) 95 mL/min/((173/100).m2) [facility] >59 " creatinine, serum 0.67 mg/dL [facility] 0.57-1.00 " urea nitrogen, blood 15 mg/dL [facility] 8-27 " blood glucose, random 90 mg/dL [facility] 65-99 " immature granulocytes, percentage of total cells, blood 0 % [facility] Not Estab. " basophil count, absolute 0.0 x10E3/uL [facility] 0.0-0.2 " Eosinophil Absolute Count 0.1 X10E3/UL [facility] 0.0-0.4 " monocyte count, blood, automated 0.4 X10E3/UL [facility] 0.1-0.9 " lymphocyte count, blood, automated 1.7 X10E3/UL [facility] 0.7-3.1 " Absolute Neutrophils 3.1 X10E3/UL [facility] 1.4-7.0 " basophils as percent of blood leukocytes 1 % [facility] Not Estab. " eosinophils as percent of blood leukocytes 2 % [facility] Not Estab. " monocytes as percent of blood leukocytes 8 % [facility] Not Estab. " lymphocytes as percent of blood leukocytes 32 % [facility] Not Estab. " neutrophils as percent of blood leukocytes 57 % [facility] Not Estab. " platelet count 192 X10E3/UL [facility] 150-450 " red blood cell distribution width 12.8 % [facility] 11.7-15.4 " mean corpuscular hemoglobin concentration, RBC 33.9 G/DL [facility] 31.5-35.7 " mean corpuscular hemoglobin, RBC 29.5 pg [facility] 26.6-33.0 " mean corpuscular volume, RBC 87 fL [facility] 79-97 " hematocrit, blood 38.4 % [facility] 34.0-46.6 " hemoglobin, blood 13.0 g/dL [facility] 11.1-15.9 " erythrocyte (RBC) count 4.40 X10E6/UL [facility] 3.77-5.28 " leukocyte count, blood 5.4 X10E3/UL [facility] 3.4-10.8 urine culture No growth [facility] specific gravity, [facility] pH, urine, semiquantitative 5.0 Deborath Vincent " glucose, urine, semiquantitative negative Deborath Vincent " bilirubin, urine 1+ Deborath Vincent " ketones, urine, by test strip negative [facility] " blood in urine (hemoglobin) by dipstick 2+ Deborath Vincent " protein, urine, semiquantitative (dipstick) negative Deborath Vincent " urobilinogen, urine, semiquantitative (dipstick) negative Debora Vincent " nitrite, urine, semiquantitative negative Debora Vincent " leukocyte esterase, urine, by dipstick trace [facility] " appearance, urine clear [facility] " [facility] color orange [facility] immature granulocytes, percentage of total cells, blood [...] leukocyte esterase, urine, by dipstick trace Josephine Plata " appearance, urine clear Josephine Plata " [...] [facility] Abnormal specific gravity, urine 1.020 Natty Carlton " pH, urine, semiquantitative 6.0 Natty Vincent " glucose, urine, semiquantitative negative Natty Carlton " bilirubin, urine negative Natty Carlton " ketones, urine, by test strip negative Natty Vincent " blood in urine (hemoglobin) by dipstick non-hemolyzed trace Natty Vincent " protein, urine, semiquantitative (dipstick) negative Natty Vincent " urobilinogen, urine, semiquantitative (dipstick) 0.2 Natty Carlton " nitrite, urine, semiquantitative negative Natty Vincent " leukocyte esterase, urine, by dipstick [...] Number Status Fluzone Quadrivalent IM Prefilled Syringe [facility] [id number] 0.5 mL [id number] completed HISTORY OF MEDICATION USE Medication Instructions [...] 1 tab By Mouth daily - Lety Boyleanova OMEPRAZOLE 20 MG ORAL CAPSULE DELAYED RELEASE i By Mouth daily for GERD - Samantha Madrigal SOCIAL HISTORY Date Observation Value Provider drug use, illicit Never Darshana Chen " alcohol use Never Darshana Chen " social history E&M Single. Not homeless. City: [facility]. State: [place]. 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 Gender of partner(s): male. Darshana Chen " social history reviewed E&M reviewed today Darshana Chen " passive cigarette smoke exposure No Darshana Chen " smoking status never smoker Darshana Chen Exercise Program Referral T Keith Vincent " Weight Management Counseling Provided T Keith Vincent " Nutrition intervention T Keith Vincent " drug use, illicit Never Keith Vincent " alcohol use Never Keith Vincent " smoking status never smoker Keith Vincent " social history E&M Single. Not homeless. City: [facility]. State: [place]. 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 Gender of partner(s): male. Keith Vincent " social history reviewed E&M reviewed today Keith Vincent drug use, illicit Never Josephine Plata " alcohol use Never Josephine Plata " social history E&M Single. Not homeless. City: [facility]. State: [place]. 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 Gender of partner(s): male. Josephine Plata " social history reviewed E&M reviewed today Josephine Plata " passive cigarette smoke exposure No Josephine Plata " smoking status never smoker Josephine Plata drug use, illicit Never Afia Salcedo " alcohol use Never Afia Salcedo " passive cigarette smoke exposure No Afia Salcedo " smoking status never smoker Afia Salcedo drug use, illicit Never Urmila Ignacio " alcohol use Never Urmila Ignacio " social history E&M Single. Not homeless. City: [facility]. State: [place] 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 Gender of partner(s): male. Urmila Ignacio " social history reviewed E&M reviewed today Urmila Ignacio " passive cigarette smoke exposure No Urmila Ignacio " smoking status never smoker Urmila Ignacio drug use, illicit Never Ana John " alcohol use Never Ana John " passive cigarette smoke exposure No Ana John " smoking status never smoker Ana John " Exercise Program Referral T Ana Lopez " Weight Management Counseling Provided T Ana Lopez " Nutrition intervention Danna Lopez drug use, illicit Never Afia Salcedo " alcohol use Never Afia Salcedo " passive cigarette smoke exposure No Afia Salcedo " smoking status never smoker Afia Salcedo Exercise Program Referral T Kya Quezada " Weight Management Counseling Provided T Kya Quezada " Nutrition intervention T Kya Quezada " drug use, illicit Never Radha Plata " alcohol use Never Radha Plata " is there any chance that you could be ? No Radha Plata " passive cigarette smoke exposure No Radha Plata " smoking status never smoker Radha Plata passive cigarette smoke exposure No Ioana Borjas " smoking status never smoker Ioana Borjas home/family situation, assessment lives in house with her self and her son Kya Quezada " family support here with daughter and grandson. lives in house with herself and her son. Kya Quezada " social history reviewed E&M reviewed today Urmila Gilierrez " social history E&M Single. Not homeless. City: [facility]. State: . 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 Gender of partner(s): male. 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 Urmila Mateus " patient considered to be homeless No Urmila Ignacio " drug use, illicit Never Urmila Ignacio " alcohol use Never Urmila Ignacio " passive cigarette smoke exposure No Urmila Ignacio " smoking status never smoker Urmila Ignacio FUNCTIONAL STATUS No Information Available MENTAL STATUS Date Observation Value Provider assessment of judgment and insight E&M intact Lety Romina " mental status examination: orientation E&M oriented to time, place, and person Ltey Vanegas " assessment of mood and affect E&M no depression, anxiety, or agitation Lety Vanegas " Generalized Anxiety Disorder Questionnaire - Question 2 0 Darshana Chen " Generalized Anxiety Disorder Questionnaire - Question 1 0 Darshana Chen mental status examination: orientation E&M oriented to time, place, and person Lety Romina " assessment of mood and affect E&M no depression, anxiety, or agitation Lety Romina Generalized Anxiety Disorder Questionnaire - Question 2 0 Josephine Plata " Generalized Anxiety Disorder Questionnaire - Question 1 0 Josephine Plata assessment of judgment and insight E&M intact Bunrith Daniel " assessment of mood and affect E&M no depression, anxiety, or agitation Jose Eliasth Daniel " Generalized Anxiety Disorder Questionnaire - Question 2 0 Afia Salcedo " Generalized Anxiety Disorder Questionnaire - Question 1 0 Afia Salcedo Generalized Anxiety Disorder Questionnaire - Question 2 0 Urmila Ignacio " Generalized Anxiety Disorder Questionnaire - Question 1 0 Urmila Ignacio assessment of judgment and insight E&M intact Samantha Kaitlin " assessment of mood and affect E&M no depression, anxiety, or agitation Samantha Kaitlin " Generalized Anxiety Disorder Questionnaire - Question 2 0 Ana Lopez " Generalized Anxiety Disorder Questionnaire - Question 1 0 Ana John assessment of judgment and insight E&M intact Tiara Huye " assessment of mood and affect E&M no depression, anxiety, or agitation Tiara Prose " Generalized Anxiety Disorder Questionnaire - Question 2 0 Afia Salcedo " Generalized Anxiety Disorder Questionnaire - Question 1 0 Afia Duenasa Generalized Anxiety Disorder Questionnaire - Question 2 0 Radha Plata " Generalized Anxiety Disorder Questionnaire - Question 1 0 Radha Molinarera Generalized Anxiety Disorder Questionnaire - Question 2 [...] Questionnaire - Question 1 0 Urmila Ignacio MEDICAL EQUIPMENT No Information Available FAMILY [...] Comp. Metabolic Panel (14) CBC With Differential/Platelet - Est Patient Exp Problem - 66713 New Patient Detailed - 52545 Venipuncture Vaccines Ordered - Print Consent/Declination Forms Urinalysis - Dip only - In House Influenza 4 Valent 3yrs+ IM - Declined Urinalysis - Dip only - In House Est Patient Exp Problem - 24021 Est Patient Exp Problem - 47335 Est Patient Exp Problem - 44085 Est Patient Well Exam (40 - 64 Yrs) - 69696 Wet Mount - In House Est Patient Exp Problem - 07703 Urinalysis - Dip only - In House Est Patient Exp Problem - 62910 Est Patient Exp Problem - 94369 New Patient Detailed - 74231 HISTORY OF PROCEDURES Procedure Date Procedure Name Provider Procedure Notes Status Venipuncture Lety Vanegas completed Vaccines Ordered - Print Consent/Declination Forms [...]
--- OUTSIDE RECORDS SUMMARY | 2019-11-17 06:02 | XMS REPORT ---
Author Author Admin, [place] Organization Unknown Address Unknown Phone Unavailable PROBLEMS [...] - Lety Romina five years of treatment, Located Within [facility] sent her to endocrine but she was [...] Location Encounter Diagnosis - Ambulatory Encounter Lety Purcellia Romina [facility] UNK - Ambulatory Encounter Elty [facility]inaandres [facility] Lety Romina Lety Romina [facility] UNK - Ambulatory Encounter Lety Romina Purcellia Romina [facility] UNK - Ambulatory Encounter Keith [facility] UNK - Ambulatory Encounter Lety Purcellia Romina [facility] CYSTITIS, ACUTE, RECURRENTESOPHAGEAL REFLUXHYPOTHYROIDISMCEREBRAL ANEURYSM, RUPTUREDHEMATURIAFATIGUEBREAST PAIN, LEFTSIALOLITHIASISOVERWEIGHTGOITERDysuriaVaginal dischargeUTIBacterial vaginosisWELL EXAM, WOMANMuscle spasm, trapeziusBMI 27.0-27.9Increased frequency of urinationUrinalysis, abnormal - Ambulatory Encounter [facility] Kya Quezada [facility] UNK - [facility] Kya Quezada [facility] UNK - Ambulatory Encounter Kya Kay Josephine Plata [facility] BMI 27.0-27.9 - Ambulatory Encounter Bunrimalcolm Coley [facility] UNK - Ambulatory Encounter Bunrimalcolm Sanchez [facility] UNK - Ambulatory Encounter Bunrimalcolm Coley [facility] UNK - Ambulatory Encounter Bunri Daniel [facility] UNK - Ambulatory Encounter Kya Quezada Jose Elias Daniel Afia [facility] Muscle spasm, trapezius - Ambulatory Encounter Kya [facility]ada [facility] UNK - Ambulatory Encounter Tiara Arauz [facility] UNK - Ambulatory Encounter Kya Quezada [facility] UNK - Ambulatory Encounter Kya Quezada [facility] UNK - Ambulatory Encounter Kya Ignacio [facility] UNK - [facility] En[facility] Ana Lopez [facility] UNK - Ambulatory Encounter Samantha Kaitlin [facility] UNK - Ambulatory Encounter [facility] - [facility] Encounter [facility] - Ambulatory Encounter Fax Status [facility] - Ambulatory Encounter Fax Status [facility] UNK - Ambulatory Encounter F[facility] Status [facility] - Ambulatory Encounter Samantha Kaitlin [facility] UNK - Ambulatory Encounter Samantha Kaitlin [facility] UNK - Ambulatory Encounter Samantha Kaitlin Lopez [facility] WELL EXAM, WOMAN - Ambulatory Encounter Urmila Ignacio Tiara Pro[facility] UNK - Ambulatory Encounter [facility] Desktop [facility] Tiara Pro[facility] UNK - Ambulatory Encounter [facility] [place]las Ignacio [facility] UNK - Ambulatory Encounter Tiara Prosjose luis [facility] UNK - Ambulatory Encounter Tiara [facility] UNK - Ambulatory Encounter Carlos [facility] DysuriaVaginal dischargeUTIBacterial vaginosis - Ambulatory Encounter Kya Quezada [facility] - [facility]ulatory Encounter Fax Status [facility] UNK - Ambulatory Encounter Fax Status [facility] - Ambulatory Encounter Fax Status [facility] - Ambulatory Encounter Fax Status [facility] UNK - Ambulatory Encounter Fax Status [facility] UNK - Ambulatory Encounter Fax Status [facility] UNK - Ambulatory Encounter Fax Status Link[facility] UNK - Ambulatory Encounter Fax Status [facility] UNK - Ambulatory Encounter Kya Plata [facility] OVERWEIGHTGOITER - Ambulatory Encounter Gela Mcrae [facility] UNK - Ambulatory Encounter Kya Borjas [facility] SIALOLITHIASIS - Ambulatory Encounter Fax Status [facility] UNK - Ambulatory Encounter Fax Status [facility] UNK - Ambulatory Encounter Kya Quezada [facility] UNK - Ambulatory Encounter Ellis Brown [facility] UNK - Ambulatory Encounter Alycia Bennett Referral Coordination Department UNK - Ambulatory Encounter [facility] - [facility]ulatory Encounter Kya Ignacio [facility] CYSTITIS, ACUTE, RECURRENTESOPHAGEAL REFLUXHYPERTENSION, BENIGNHYPOTHYROIDISMCEREBRAL ANEURYSM, RUPTUREDHEMATURIAFATIGUEBREAST PAIN, LEFT VITAL SIGNS Date Observation Value Provider blood pressure, diastolic, second observation 80 mm[Hg] Deborath Vincent " blood pressure, systolic, second observation 125 mm[Hg] Deborath Vincent " temperature E&M 98.0 [degF] [facility] " respiratory rate E&M 16 /min [facility] " pulse rate E&M 69 /min [facility] " oxygen saturation, oximetry 99 % [facility] " blood pressure, diastolic 90 mm[Hg] [facility] " blood pressure, systolic 146 mm[Hg] [facility] " weight E&M 141.80 lbs. [facility] " weight in kilograms E&M 64.45 kg [facility] " height E&M 62 [in_i] [facility] " height in centimeters E&M 157.48 cm [facility] " method used to obtain blood pressure automatic [facility] " Blood Pressure Position 01 sitting [facility] " blood pressure, site #1 left arm [facility] " temperature site oral [facility] oxygen saturation, oximetry 98 % Josephine Plata [...] Ignacio " height E&M 62 [in_i] Urmila Mateus " height in centimeters E&M 157.48 cm Urmilamague Ignacio oxygen saturation, oximetry 97 % Ana [...] Observation Value Provider Reference Range Interpretation Location urine culture No growth LinkLogic specific gravity, urine 1.025 Deborath Vincent " pH, urine, semiquantitative 5.0 Deborath Vincent " glucose, urine, semiquantitative negative Deborath Vincent " bilirubin, urine 1+ Deborath Vincent " ketones, urine, by test strip negative Deborath Vincent " blood in urine (hemoglobin) by dipstick 2+ Deborath Vincent " protein, urine, semiquantitative (dipstick) negative Deborath Vincent " urobilinogen, urine, semiquantitative (dipstick) negative Deborath Vincent " nitrite, urine, semiquantitative negative Deborath Vincent " leukocyte esterase, urine, by dipstick trace [facility] " appearance, urine clear [facility] " urine color orange [facility] immature granulocytes, percentage of total cells, blood 0 % [facility] " basophil count, absolute 0.0 x10E3/uL [facility] 0[facility]0-0.2 " Eosinophil Absolute Count 0.1 X10E3/UL [facility] 0.0-0.4 " monocyte count, blood, automated 0.3 X10E3/UL [facility] 0.1-0.9 " lymphocyte count, blood, automated 2.0 X10E3/UL [facility] 0.7-3.1 " Absolute Neutrophils 3.4 X10E3/UL [facility] 1.4-7.0 " basophils as percent of blood leukocytes 1 % [facility] " eosinophils as percent of blood leukocytes 2 % [facility] " monocytes as percent of blood leukocytes 6 % [facility] " lymphocytes as percent of blood leukocytes 34 % [facility] " neutrophils as percent of blood leukocytes 57 % [facility] " platelet count 213 X10E3/UL [facility] 150-379 " red blood cell distribution width 13.3 % [facility] 12.3-15.4 " mean corpuscular hemoglobin concentration, RBC 32.9 G/DL [facility] 31.5-35.7 " mean corpuscular hemoglobin, RBC 29.6 pg LinkLog 26.6-33.0 " mean corpuscular volume, RBC 90 fL [facility] 79-97 " hematocrit, blood 41.4 % [facility] 34.0-46.6 " hemoglobin, blood 13.6 g/dL [facility] 11.1-15.9 " erythrocyte (RBC) count 4.60 X10E6/UL [facility] 3.77-5.28 " leukocyte count, blood 6.0 X10E3/UL [facility] 3.4-10.8 " thyroxine, serum, free 0.91 ng/dL [facility] 0.82-1.77 " thyroid stimulating hormone, serum 2.210 u[iU]/mL [facility] 0.450-4.500 specific gravity, urine 1.015 Josephine Plata [...] Vincent " glucose, urine, semiquantitative negative Natty Vincent " bilirubin, urine negative Natty Carlton " ketones, urine, by test strip negative Nattyrupali Vincent " blood in urine (hemoglobin) by dipstick non-hemolyzed trace Natty Vincent " protein, urine, semiquantitative (dipstick) negative Natty Carlton " urobilinogen, urine, semiquantitative (dipstick) 0.2 Natty Carlton " nitrite, urine, semiquantitative negative Natty Carlton " leukocyte esterase, urine, by dipstick 3+ [...] Number Status Fluzone Quadrivalent IM Prefilled Syringe [facility] [address]-17 0.5 mL [id number] completed HISTORY OF MEDICATION USE Medication Instructions [...] By Mouth daily for GERD - Samantha Osorioen SOCIAL HISTORY Date Observation Value Provider Exercise Program Referral T Keith Vincent " Weight Management Counseling Provided T Keith Vincent " Nutrition intervention T Keith Vincent " drug use, illicit Never Deborath Vincent " alcohol use Never Deborath Vincent " smoking status never smoker Keith Vincent " social history E&M Single. Not homeless. City: [facility]. State: [place]. 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 Gender of partner(s): male. Keith Vincent " social history reviewed E&M reviewed today Keith Vincent drug use, illicit Never Josephine Plata " alcohol use Never Josephine Plata " social history E&M Single. Not homeless. City: [facility]. State: [place]. 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 Gender [...] social history E&M Single. Not homeless. City: [facility]. State: [place]. 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 Gender of partner(s): male. Urmila Ignacio " social history reviewed E&M reviewed today Urmila Ignacio " passive cigarette smoke exposure No Urmila Ignacio " smoking status never smoker Urmila Ignacio drug use, illicit Never Ana John " alcohol use Never Ana Lopez " passive cigarette smoke exposure No Ana [...] Plata passive cigarette smoke exposure No Ioana Short " smoking status never smoker Ioana Borjas home/family situation, assessment lives in house with her self and her son Kya Quezada " family support here with daughter and grandson. lives in house with herself and her son. Kya Quezada " social history reviewed E&M reviewed today Urmila Mateus " social history E&M Single. Not homeless. City: [facility]. State: . 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 Gender of partner(s): male. 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 Urmila Mateus " patient considered to be homeless No Urmila Ignacio " drug use, illicit Never Urmilamague Ignacio " alcohol use Never Urmilamague Ignacio " passive cigarette smoke exposure No Urmila Mateus " smoking status never smoker Urmila Mateus FUNCTIONAL STATUS No Information Available MENTAL STATUS Date Observation Value Provider mental status examination: orientation E&M oriented to time, place, and person Lety Vanegas " assessment of mood and affect E&M no depression, anxiety, or agitation Lety Vanegas Generalized Anxiety Disorder Questionnaire - Question 2 0 Josephineus Plata " Generalized Anxiety Disorder Questionnaire - Question 1 0 Josephine Molinarera assessment of judgment and insight E&M intact Adrián Sanchez " assessment of mood and affect E&M no depression, anxiety, or agitation Hughrimalcolm Sanchez " Generalized Anxiety Disorder Questionnaire - [...] CBC With Differential/Platelet New Patient Detailed - 23241 Venipuncture Vaccines Ordered - Print Consent/Declination Forms Urinalysis - Dip only - In House Influenza 4 Valent 3yrs+ IM - Declined Urinalysis - Dip only - In House Est Patient Exp Problem - 25205 Est Patient Exp Problem - 94989 Est Patient Exp Problem - 47574 Est Patient Well Exam (40 - 64 Yrs) - 91687 [place] - In House Est Patient Exp Problem - 48287 Urinalysis - Dip only - In House Est Patient Exp Problem - 27172 Est Patient Exp Problem - 26888 New Patient Detailed - 05897 HISTORY OF PROCEDURES Procedure Date Procedure Name Provider Procedure Notes Status Venipuncture Lety Romina completed Vaccines Ordered - Print Consent/Declination Forms Lety Romina completed Urinalysis - Dip only - In House Lety Romina completed Influenza 4 Valent 3yrs+ IM - Declined Kya Quezada completed Urinalysis - Dip only - In House Kya Quezada completed [place] - In House Carlos Shaikh completed Urinalysis - Dip only - In House Carlos Shaikh completed GOALS No Information Available HEALTH CONCERNS No Information Available
--- OUTSIDE RECORDS SUMMARY | 2019-11-17 06:03 | XMS REPORT ---
Author Author Admin, [place] Organization Unknown Address Unknown Phone Unavailable PROBLEMS [...] - Lety Romina five years of treatment, [facility] sent her to endocrine but she [...] Encounter Diagnosis - Ambulatory Encounter Fax Status [facility] Services UNK - Ambulatory Encounter Fax Status [facility] Services UNK - Ambulatory Encounter Fax Status [facility] Services UNK - Ambulatory Encounter Lety Rominaandres Purcellia Romina [facility] UNK - Ambulatory Encounter Lety Romina Lety Romina Darshana Kim [facility] Hematuria - Ambulatory Encounter Samantha Kaitlin [facility] Services UNK - Ambulatory Encounter Samantha Kaitlin [facility] UNK - Ambulatory Encounter [facility] - [facility] Encounter Samantha Kaitlin [facility] UNK - Ambulatory Encounter Lety Romina Lety Romina [facility] UNK - Ambulatory Encounter Lety Romina [facility] - [facility] Encounter Keith Gibbs [facility] Stephanie Warren [facility] Practice UNK - Ambulatory Encounter Lety Romina Lety Romina [facility] UNK - Ambulatory Encounter Lety Romina Lety Romina [facility] UNK - Ambulatory Encounter Lety Romina Lety Romina [facility] Practice UNK - Ambulatory Encounter Lety Romina Lety Romina [facility] UNK - Ambulatory Encounter Keith Vincent [facility] UNK - Ambulatory Encounter [facility], [facility], RECURRENTESOPHAGEAL REFLUXHYPOTHYROIDISMCEREBRAL ANEURYSM, RUPTUREDHEMATURIAFATIGUEBREAST PAIN, LEFTSIALOLITHIASISOVERWEIGHTGOITERDysuriaVaginal dischargeUTIBacterial vaginosisWELL EXAM, WOMANMuscle spasm, trapeziusBMI 27.0-27.9Increased frequency of urinationUrinalysis, abnormal - Ambulatory Encounter Samantha Madrigal [facility] UNK - Ambulatory Encounter Kya Quezada [facility] UNK - Ambulatory Encounter Kya Quezada [facility] UNK - Ambulatory Encounter Kya Quezada [facility] UNK - [facility] 27.0-27.9 - Ambulatory Encounter Adrián Sanchez [facility] UNK - Ambulatory Encounter Buningris Sanchez [facility] UNK - Ambulatory Encounter Bunrimalcolm Sanchez [facility] UNK - Ambulatory Encounter Buningris Sanchez [facility] UNK - Ambulatory Encounter Kya Quezada Jose Elias Daniel Afia Salcedo [facility] Muscle spasm, trapezius - Ambulatory Encounter [facility] - [facility] En[facility] Tiara [facility] - [facility] En[facility] - [facility]ulatory Encounter Kya Quezada [facility] UNK - Ambulatory Encounter Kya Ignacio [facility] UNK - Ambulatory Encounter Samantha [facility]aitlin [facility] UNK - Ambulatory Encounter Ana John [facility] UNK - Ambulatory Encounter Samantha Kaitlin [facility] UNK - Ambulatory Encounter Fax Status [facility] UNK - Ambulatory Encounter Fax Status [facility] UNK - Ambulatory Encounter Fax Status [facility] UNK - Ambulatory Encounter Fax Status [facility] UNK - Ambulatory Encounter Fax Status [facility] UNK - Ambulatory Encounter Samanthacosmo Madrigal [facility] UNK - Ambulatory Encounter Samantha Kaitlin [facility] UNK - Ambulatory Encounter Samantha Madrigal Renée Perdomo Ana John [facility] WELL EXAM, WOMAN - Ambulatory Encounter Urmila Arauz [facility] UNK - Ambulatory Encounter [facility] Tiara Prose [facility] UNK - Ambulatory Encounter [facility] Tiara Ignacio [facility] UNK - Ambulatory Encounter Tiara Huyjose luis [facility] UNK - Ambulatory Encounter Tiara Prosjose luis [facility] UNK - Ambulatory Encounter Carlos Oreilly [facility] DysuriaVaginal dischargeUTIBacterial vaginosis - Ambulatory Encounter [facility] Encounter Fax Status [facility] UNK - Ambulatory Encounter Fax Status [facility] UNK - Ambulatory Encounter Fax Status [facility] UNK - Ambulatory Encounter Fax Status [facility] UNK - Ambulatory Encounter Fax Status [facility] UNK - Ambulatory Encounter F[facility] - Ambulatory Encounter Fax Status [facility] UNK - Ambulatory Encounter Fax Status [facility] UNK - Ambulatory Encounter Kya Quezada Radha Plata [facility] OVERWEIGHTGOITER - Ambulatory Encounter Gela Clementina [facility] UNK - Ambulatory Encounter Kya Churchillsey Indio [facility] SIALOLITHIASIS - Ambulatory Encounter Fax Status [facility] Services UNK - Ambulatory Encounter Fax Status [facility] UNK - Ambulatory Encounter Kya Quezada [facility] UNK - Ambulatory Encounter Ellis Brown [facility] UNK - Ambulatory Encounter Alycia Bennett Referral Coordination Department UNK - Ambulatory Encounter Kya Quezada [facility] UNK - Ambulatory Encounter Kya Gilierrez [facility] CYSTITIS, ACUTE, RECURRENTESOPHAGEAL REFLUXHYPERTENSION, BENIGNHYPOTHYROIDISMCEREBRAL ANEURYSM, [...] blood pressure, diastolic, second observation 80 mm[Hg] [facility] " blood pressure, systolic, second observation 125 mm[Hg] [facility] " temperature E&M 98.0 [degF] [facility] " respiratory rate E&M 16 /min [facility] " pulse rate E&M 69 /min [facility] " oxygen saturation, oximetry 99 % [facility] " blood pressure, diastolic 90 mm[Hg] [facility] " blood pressure, systolic 146 mm[Hg] [facility] " weight E&M 141.80 lbs. [facility] " weight in kilograms E&M 64.45 kg [facility] " height E&M 62 [in_i] [facility] " height in centimeters E&M 157.48 cm [facility] " method used to obtain blood pressure automatic [facility] " Blood Pressure Position 01 sitting [facility] " blood pressure, site #1 left arm [facility] " temperature site oral [facility] oxygen saturation, oximetry 98 % [...] " height in centimeters E&M 157.48 cm Faia Salcedo method used to obtain blood pressure [...] No growth [facility] specific gravity, [facility].025 [facility] " pH, urine, semiquantitative 5.0 Deborath Vincent " glucose, urine, semiquantitative negative Deborath Vincent " bilirubin, urine 1+ Deborath Vincent " ketones, urine, by test strip negative [facility] " blood in urine (hemoglobin) by dipstick 2+ Deborath Vincent " protein, urine, semiquantitative (dipstick) negative Deborath Vincent " urobilinogen, urine, semiquantitative (dipstick) negative Debora Vincent " nitrite, urine, semiquantitative negative Debora Vincent " leukocyte esterase, urine, by dipstick trace [facility] " appearance, urine clear [facility] " urine color orange [facility] immature granulocytes, percentage of total cells, [...] Ignacio " protein, urine, semiquantitative (dipstick) negative Urmlia Ignacio " urobilinogen, urine, semiquantitative (dipstick) negative Urmila Ignacio " nitrite, urine, semiquantitative negative Urmila Ignacio " leukocyte esterase, urine, by dipstick negative Urmila Ignacio " appearance, urine clear Urmila Ignacio " urine color yellow Urmila Ignacio HISTORY OF IMMUNIZATIONS Date Vaccine Dose Lot Number Status Fluzone Quadrivalent IM Prefilled Syringe [facility] [address]-32 0.5 mL [id number] completed HISTORY OF MEDICATION USE Medication Instructions [...] social history E&M Single. Not homeless. City: [facility]. State: [place]. 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 Gender of [...] social history E&M Single. Not homeless. City: [facility]. State: [place] 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 Gender of partner(s): male. Keith Vincent " social history reviewed E&M reviewed today Keith Vincent drug use, illicit Never Josephine Plata " alcohol use Never Josephine Plata " social history E&M Single. Not homeless. City: [facility]. State: [place]. 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 Gender of partner(s): male. Josephine Plata " social history reviewed E&M reviewed today Josephine Plata " passive cigarette smoke exposure No Josephine Plata " smoking status never smoker Josephine Plata drug use, illicit Never Afia Salcedo " alcohol use Never Afia Salcedo " passive cigarette smoke exposure No Afia Sacledo " smoking status never smoker Afia Salcedo drug use, illicit Never Urmila Ignacio " alcohol use Never Urmila Ignacio " social history E&M Single. Not homeless. City: [facility]. State: [place]. 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 Gender of [...] social history E&M Single. Not homeless. City: [facility]. State: . 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 Gender of partner(s): male. 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 Urmila Mateus " patient considered to be [...] Differential/Platelet - Est Patient Exp Problem - 13880 New Patient Detailed - 40748 Venipuncture Vaccines Ordered - Print Consent/Declination Forms Urinalysis - Dip only - In House Influenza 4 Valent 3yrs+ IM - Declined Urinalysis - Dip only - In House Est Patient Exp Problem - 61934 Est Patient Exp Problem - 48113 Est Patient Exp Problem - 33961 Est Patient Well Exam (40 - 64 Yrs) - 80240 [place] - In House Est Patient Exp Problem - 32789 Urinalysis - Dip only - In House Est Patient Exp Problem - 27899 Est Patient Exp Problem - 06141 New Patient Detailed - 43303 HISTORY OF PROCEDURES Procedure Date Procedure Name [...]
[2019-11-17 09:20] VITALS: BP 160/85
--- NOTE | 2019-11-18 13:41 | Operative Report ---
DATE OF PROCEDURE: 11/17/2019 SURGEON: Brain Parmar MD PREOPERATIVE DIAGNOSES: 1. Multiple chronic urinary tract infections. 2. Clinical signs and symptoms of interstitial cystitis. POSTOPERATIVE DIAGNOSES: 1. Multiple chronic urinary tract infections. 2. Clinical signs and symptoms of interstitial cystitis. PROCEDURES: 1. Cystourethroscopy with hydrodistention (entirely separate procedure for clinical signs and symptoms of interstitial cystitis). 2. Cystourethroscopy with left ureteral catheterization and left retrograde pyelogram (separate procedure for multiple chronic urinary tract infections). 3. Cystourethroscopy with right ureteral catheterization and right retrograde pyelogram (separate procedure for multiple chronic urinary tract infections). 4. Supervision of fluoroscopy. 5. Interpretation of retrograde pyelography. ANESTHESIA: General. ESTIMATED BLOOD LOSS: Minimal. COMPLICATIONS: None. INDICATIONS: Ms. Pickard is a very pleasant 64-year-old female with multiple chronic urinary tract infections, who has been delayed in her workup since mid September 2019 due to the coronavirus outbreak. She has had a recurrence of symptoms and outpatient pain. The patient and I had an extensive discussion regarding alternatives, risks, and benefits including the feeling that there was an increased risk, should be not urgently perform this and she may go to the emergency room and be admitted. With more exposure to the coronavirus throug the ER versus elective outpatient surgery, the patient elected to proceed with outpatient surgery feeling delay might cause further medical deterioration. PROCEDURE IN DETAIL: After informed consent was obtained, the patient was taken to the operative suite, placed supine on the operating table, underwent general anesthesia by the Anesthesia Service, and placed in dorsal lithotomy position and sterilely prepped for cystoscopy. A 21-Vietnamese cystoscope was inserted per urethra with grade 2 cystocele. Panendoscopy of the bladder revealed no tumors, no stones. Both ureteral orifices were in normal anatomic location and position and were seen to efflux clear urine. There was a small capacity bladder. Hydrodistention was performed revealing a capacity of 600 mL. No glomerulations, no Hunner's ulcers. Bilateral retrograde pyelogram was performed, which were normal. The bladder was drained. The patient was awakened from anesthesia and transferred to the recovery room in excellent condition. Supervision of fluoroscopy and interpretation of retrograde pyelography: I was present for procedure and supervised fluoroscopy. There was no radiologist present. Attention was turned to the left and right ureteral orifices, which were catheterized with an 8-Vietnamese cone-tipped catheter. In retrograde fashion, contrast was injected revealing delicate ureters, delicate pelvocaliceal systems, no evidence of filling defects, no evidence of hydronephrosis. IMPRESSION: Normal retrograde pyelogram. MD DOV [place]/MODL /[id number] MTDTristin
== END | disposition home or self-care (01) ==
LOC: OR 05:57
PROVIDERS: ATTEND Urology
DX: N39.0 Urinary tract infection, site not specified (principal); N81.10 Cystocele, unspecified; E03.9 Hypothyroidism, unspecified; I10 Essential (primary) hypertension; Z88.8 Allergy status to other drugs, medicaments and biological substances
CPT/HCPCS: 52005; 74420; 93005; C1758; J0696; J2001; J2704; Q9967